=== PATIENT | male | born 1995 | race Asian ===

== ENCOUNTER 2017-07-27 17:03 | Emergency (ER) | payer OTHER ==
[~2017-07-27] VITALS: Ht 165.1 cm; Wt 72.7 kg
[2017-07-27] MEDS ORDERED: MORPHINE SULFATE 4 MG/ML SYRINGE IVP ONE (17:45)
[2017-07-27] MEDS ORDERED: ONDANSETRON HCL 4 MG/2 ML VIAL IVP ONE (17:45)
[2017-07-27] MEDS ORDERED: SODIUM CHLORIDE 0.9% 1,000 ML IV ONE (18:15)
[2017-07-27] MEDS ORDERED: FentaNYL CITRATE-PF 100 MCG/2 ML VIAL IVP ONE ×2 (18:15→20:15)
[2017-07-27] MEDS ORDERED: MIDAZOLAM HCL 5 MG/ML VIAL IVP ONE ×2 (18:15→20:15)
[2017-07-27] MEDS ORDERED: MIDAZOLAM HCL 2 MG/2 ML VIAL ONE (19:27)
[2017-07-27 21:30] VITALS: BP 127/83
== END 2017-07-27 21:53 | disposition home or self-care (01) ==
LOC: EMS 17:05
DX: S43.004A Unspecified dislocation of right shoulder joint, initial encounter (principal); F12.90 Cannabis use, unspecified, uncomplicated; W50.0XXA Accidental hit or strike by another person, initial encounter; Y93.67 Activity, basketball; Y92.89 Other specified places as the place of occurrence of the external cause; Y99.8 Other external cause status
CPT/HCPCS: 23650; 73030; 93005; 96361; 96374; 96375; 96376; 99152; 99153; 99285; J2250; J2270; J2405; J3010; J7030

== ENCOUNTER 2018-02-01 21:44 | Emergency (ER) | payer OTHER ==
[~2018-02-01] VITALS: Ht 162.6 cm; Wt 75.9 kg
[2018-02-01] MEDS ORDERED: KETAMINE HCL 50 MG/ML 10 ML VIAL IVP ONE (22:45)
[2018-02-02] MEDS ORDERED: ONDANSETRON HCL 4 MG/2 ML VIAL IVP ONE (01:00)
[2018-02-02 01:30] VITALS: BP 132/77
== END 2018-02-02 01:44 | disposition home or self-care (01) ==
LOC: EMS 21:46
DX: M24.411 Recurrent dislocation, right shoulder (principal); F12.10 Cannabis abuse, uncomplicated; X58.XXXA Exposure to other specified factors, initial encounter; Y93.89 Activity, other specified; Y92.89 Other specified places as the place of occurrence of the external cause; Y99.8 Other external cause status
CPT/HCPCS: 23650; 73030; 96374; 96375; 99285; J2405; J3490

== ENCOUNTER 2018-03-02 02:11 | Emergency (ER) | payer OTHER ==
[~2018-03-02] VITALS: Ht 162.6 cm; Wt 62.0 kg
[2018-03-02] MEDS ORDERED: MORPHINE SULFATE 4 MG/ML SYRINGE IVP ONE (04:15)
[2018-03-02] MEDS ORDERED: ONDANSETRON HCL 4 MG/2 ML VIAL IVP ONE (04:15)
[2018-03-02] MEDS ORDERED: MIDAZOLAM HCL 5 MG/ML VIAL IVP ONE (04:45)
[2018-03-02] MEDS ORDERED: FentaNYL CITRATE-PF 100 MCG/2 ML VIAL IVP ONE ×2 (04:45→06:30)
[2018-03-02] MEDS ORDERED: MIDAZOLAM HCL 2 MG/2 ML VIAL IVP ONE (06:30)
[2018-03-02 07:24] VITALS: BP 135/97
== END 2018-03-02 07:54 | disposition home or self-care (01) ==
LOC: EMS 02:11
DX: S43.004A Unspecified dislocation of right shoulder joint, initial encounter (principal); F12.90 Cannabis use, unspecified, uncomplicated; X50.0XXA Overexertion from strenuous movement or load, initial encounter; Y93.89 Activity, other specified; Y92.89 Other specified places as the place of occurrence of the external cause; Y99.8 Other external cause status
CPT/HCPCS: 23650; 73030; 96374; 96375; 99152; 99153; 99285; J2250; J2270; J2405; J3010; 29240

== ENCOUNTER 2018-04-25 11:12 | Emergency (ER) | payer OTHER ==
[~2018-04-25] VITALS: Ht 162.6 cm; Wt 74.1 kg
[2018-04-25] MEDS ORDERED: OXYGEN THERAPY IH SCH (11:30)
[2018-04-25] MEDS ORDERED: FentaNYL CITRATE-PF 100 MCG/2 ML VIAL IVP ONE (11:30)
[2018-04-25] MEDS ORDERED: MIDAZOLAM HCL 2 MG/2 ML VIAL IVP ONE ×2 (11:30)
[2018-04-25] MEDS ORDERED: ETOMIDATE 2 MG/ML 10 ML VIAL ONE (12:01)
[2018-04-25] MEDS ORDERED: ETOMIDATE 2 MG/ML 10 ML VIAL IVP ONE (12:30)
[2018-04-25] MEDS ORDERED: IBUPROFEN 600 MG TABLET PO ONE (14:00)
[2018-04-25 14:22] VITALS: BP 134/102
== END 2018-04-25 14:53 | disposition home or self-care (01) ==
LOC: EMS 11:13
DX: S00.83XA Contusion of other part of head, initial encounter (principal); M24.411 Recurrent dislocation, right shoulder; F12.90 Cannabis use, unspecified, uncomplicated; W19.XXXA Unspecified fall, initial encounter; Y93.67 Activity, basketball; Y92.89 Other specified places as the place of occurrence of the external cause; Y99.8 Other external cause status
CPT/HCPCS: 23650; 70100; 73030; 96374; 99152; 99285; G0238; J2250; J3010; J3490

== ENCOUNTER 2018-06-02 17:05 | Emergency (ER) | payer OTHER ==
[~2018-06-02] VITALS: Ht 162.6 cm; Wt 73.6 kg
[2018-06-02 17:44] VITALS: BP 152/103
[2018-06-02] MEDS ORDERED: HydrOXYzine PAMOATE 50 MG CAPSULE PO ONE (18:15)
== END 2018-06-02 18:56 | disposition home or self-care (01) ==
LOC: EMS 17:05
DX: F41.9 Anxiety disorder, unspecified (principal); F32.9 Major depressive disorder, single episode, unspecified; F12.90 Cannabis use, unspecified, uncomplicated

== ENCOUNTER 2018-06-22 13:25 | Emergency (ER) | payer OTHER ==
[~2018-06-22] VITALS: Ht 162.6 cm; Wt 74.5 kg
[2018-06-22] MEDS: MORPHINE SULFATE 4 MG/ML SYRINGE IVP ONE (14:11)
[2018-06-22] MEDS: ONDANSETRON HCL 4 MG/2 ML VIAL IVP ONE (14:11)
[2018-06-22] MEDS: ETOMIDATE 2 MG/ML 10 ML VIAL IVP ONE (15:30)
[2018-06-22] MEDS: OXYGEN THERAPY IH SCH (15:30)
[2018-06-22] MEDS ORDERED: MIDAZOLAM HCL 5 MG/ML VIAL ONE (15:47)
[2018-06-22 16:05] VITALS: BP 155/90
[2018-06-22 16:24] LABS: BASOPHILS % (AUTO) 0.5 % (0.0-2.0); EOSINOPHILS % (AUTO) 2.1 % (1.0-6.0); HEMATOCRIT 48.5 % (41-53); HEMOGLOBIN 16.9 g/dL (13.5-17.5); LYMPHOCYTES # (AUTO) 2.5 K/uL (1.0-4.8); LYMPHOCYTES % (AUTO) 41.4 % (22.0-44.0); MEAN CORPUSCULAR HEMOGLOBIN 30.4 pg (26.0-34.0); MEAN CORPUSCULAR HGB CONC 34.9 G/dL (31.0-37.0); MEAN CORPUSCULAR VOLUME 87 fL (80-100); MONOCYTES # (AUTO) 0.3 K/uL (0.1-1.0); MONOCYTES % (AUTO) 5.5 % (2.0-9.0); NEUTROPHILS % (AUTO) 50.5 % (40.0-70.0); PLATELET COUNT (AUTO) 364 K/uL (150-450); RED BLOOD CELL COUNT(AUTO) 5.58 MIL/uL (4.50-5.90); RED CELL DISTRIBUTION WIDTH 12.8 % (11.5-14.5)
[2018-06-22 16:39] LABS: ANION GAP 10 mmol/L (8-16); CALCIUM, TOTAL 8.8 mg/dL (8.8-10.5); CARBON DIOXIDE 25 mmol/L (22-29); CHLORIDE 106 mmol/L (98-107); CREATININE 1.08 mg/dL (0.60-1.30); GLOMERULAR FILTR. RATE CALC > 60 mL/min (>60); GLUCOSE,RANDOM 90 mg/dL (70-110); POTASSIUM 3.9 mmol/L (3.5-5.1); SODIUM SERUM 141 mmol/L (136-145); UREA NITROGEN, BLOOD 12 mg/dL (7-18)
[2018-06-22 16:45] LABS: ALANINE AMINOTRANSFERASE 32 U/L (12-78); ALBUMIN 4.5 g/dL (3.4-5.0); ALKALINE PHOSPHATASE 99 U/L (46-116); ASPARTATE AMINOTRANSFERASE 15 U/L (15-37); BILIRUBIN,TOTAL 0.4 mg/dL (0.1-1.0)
== END 2018-06-22 18:32 | disposition home or self-care (01) ==
LOC: EDUNIT# 13:25 → EMS 13:27
DX: S43.014A Anterior dislocation of right humerus, initial encounter (principal); F41.9 Anxiety disorder, unspecified; X58.XXXA Exposure to other specified factors, initial encounter; Y93.89 Activity, other specified; Y92.89 Other specified places as the place of occurrence of the external cause; Y99.8 Other external cause status
CPT/HCPCS: 23650; 36415; 73030; 80053; 85025; 96374; 96375; 99152; 99285; J2250; J2270; J2405; J3490

== ENCOUNTER 2020-10-12 18:06 | Emergency (ER) | payer MEDICAID, OTHER ==
[~2020-10-12] VITALS: Ht 172.7 cm; Wt 72.7 kg
[2020-10-12 18:16] VITALS: BP 129/81
== END 2020-10-12 19:19 | disposition home or self-care (01) ==
LOC: EMS 18:11
DX: S46.911A Strain of unspecified muscle, fascia and tendon at shoulder and upper arm level, right arm, initial encounter (principal); F12.90 Cannabis use, unspecified, uncomplicated; F17.210 Nicotine dependence, cigarettes, uncomplicated; W21.05XA Struck by basketball, initial encounter; Y93.89 Activity, other specified; Y92.89 Other specified places as the place of occurrence of the external cause; Y99.8 Other external cause status
CPT/HCPCS: 99283

== ENCOUNTER 2022-07-14 10:03 | Inpatient (IN) | payer MEDICAID, OTHER, SELFPAY ==
[~2022-07-14] VITALS: Ht 170.2 cm; Wt 78.2 kg
[2022-07-14 12:12] LABS: BASOPHILS % (AUTO) 0.2 % (0.0-2.0); EOSINOPHILS % (AUTO) 0.1 % (1.0-6.0); HEMATOCRIT 50.3 % (41-53); HEMOGLOBIN 17.1 g/dL (13.5-17.5); LYMPHOCYTES # (AUTO) 0.8 K/uL (1.0-4.8); LYMPHOCYTES % (AUTO) 15.9 % (22.0-44.0); MEAN CORPUSCULAR HEMOGLOBIN 29.5 pg (26.0-34.0); MEAN CORPUSCULAR HGB CONC 33.9 G/dL (31.0-37.0); MEAN CORPUSCULAR VOLUME 87 fL (80-100); MONOCYTES # (AUTO) 0.5 K/uL (0.1-1.0); MONOCYTES % (AUTO) 9.1 % (2.0-9.0); NEUTROPHILS % (AUTO) 74.7 % (40.0-70.0); PLATELET COUNT (AUTO) 309 K/uL (150-450); RED BLOOD CELL COUNT(AUTO) 5.78 MIL/uL (4.50-5.90); RED CELL DISTRIBUTION WIDTH 12.7 % (11.5-14.5)
[2022-07-14 12:15] LABS: ANION GAP 13 mmol/L (8-16); CALCIUM, TOTAL 9.4 mg/dL (8.8-10.5); CARBON DIOXIDE 22 mmol/L (22-29); CHLORIDE 103 mmol/L (98-107); CREATININE 0.76 mg/dL (0.60-1.30); GLOMERULAR FILTR. RATE CALC > 60 mL/min (>60); GLUCOSE,RANDOM 103 mg/dL (70-110); SODIUM SERUM 138 mmol/L (136-145); UREA NITROGEN, BLOOD 14 mg/dL (7-18)
[2022-07-14 12:21] LABS: ALANINE AMINOTRANSFERASE 80 U/L (12-78); ALBUMIN 4.7 g/dL (3.4-5.0); ALKALINE PHOSPHATASE 117 U/L (46-116); ASPARTATE AMINOTRANSFERASE 32 U/L (15-37); BILIRUBIN,TOTAL 0.5 mg/dL (0.1-1.0)
[2022-07-14] MEDS ORDERED: LORazepam 2 MG TABLET PO PRN (15:15)
[2022-07-14] MEDS ORDERED: QUEtiapine FUMARATE 100 MG TABLET PO PRN (15:15)
[2022-07-14] MEDS ORDERED: ZOLPIDEM TARTRATE 10 MG TABLET PO PRN (15:15)
[2022-07-14 17:57] LABS: COVID AG,FIA SOURCE NASAL SWAB
[2022-07-14] MEDS ORDERED: IBUPROFEN 400 MG TABLET PO PRN (19:45)
[2022-07-14] MEDS ORDERED: ACETAMINOPHEN 325 MG TABLET PO PRN (19:45)
[2022-07-14] MEDS ORDERED: CloNIDine HCL 0.1 MG TABLET PO PRN (19:45)
[2022-07-14] MEDS ORDERED: ONDANSETRON HCL 4 MG TABLET PO PRN (19:45)
[2022-07-14] MEDS ORDERED: PETROLATUM,WHITE 28 GM JELLY TP PRN (19:45)
[2022-07-14] MEDS ORDERED: NICOTINE 14 MG/24 HOUR PATCH TD PRN (19:45)
[2022-07-14] MEDS ORDERED: DOCUSATE SODIUM 100 MG CAPSULE PO PRN (19:45)
[2022-07-14] MEDS ORDERED: GuaiFENesin/D-METHORPHAN [SUGAR-FREE] 200-20MG/10 ML SYRUP UDCUP PO PRN (19:45)
[2022-07-14] MEDS ORDERED: ALBUTEROL SULFATE HFA 90 MCG/PUFF 8 GM INHALER IH PRN (19:45)
[2022-07-14] MEDS ORDERED: MAG HYDROX/AL HYDROX/SIMETH ES 30 ML SUSPENSION UDCUP PO PRN (19:45)
[2022-07-14] MEDS ORDERED: MAGNESIUM HYDROXIDE SUSPENSION 30 ML UDCUP PO PRN (19:45)
[2022-07-14] MEDS ORDERED: LOPERAMIDE HCL 2 MG CAPSULE PO PRN (19:45)
[2022-07-14 21:06] LABS: APPEARANCE,URINE CLEAR (CLEAR); BILIRUBIN,URINE NEGATIVE (NEGATIVE); GLUCOSE, URINE (UA) NEGATIVE (NEGATIVE); LEUKOCYTE ESTERASE ,URINE NEGATIVE (NEGATIVE); NITRATE,URINE NEGATIVE (NEGATIVE); OCCULT BLOOD,URINE NEGATIVE (NEGATIVE); PH,URINE 5.5 (5.0-8.0); PROTEIN,URINE 30-70 mg/dL (NEGATIVE); SPECIFIC GRAVITIY, URINE 1.028 (1.003-1.030); UROBILINOGEN,URINE <=1.0 mg/dL (<=1.0)
[2022-07-14 21:12] LABS: AMPHET/METH SCREEN,URINE NEGATIVE (NEGATIVE); BARBITURATE SCREEN, URINE NEGATIVE (NEGATIVE); BENZODIAZEPINES SCREEN,URINE NEGATIVE (NEGATIVE); CANNABINOID SCREEN,URINE POSITIVE (NEGATIVE); COCAINE SCREEN,URINE NEGATIVE (NEGATIVE); METHADONE SCREEN, URINE NEGATIVE (NEGATIVE); OPIATE SCREEN,URINE NEGATIVE (NEGATIVE)
[2022-07-14 21:19] LABS: PHENCYCLIDINE SCREEN,URINE NEGATIVE (NEGATIVE)
[2022-07-14 22:55] VITALS: BP 143/88
[2022-07-14] MEDS ORDERED: INFLUENZA VIRUS VACCINE QVS 2022-23 (6MO+)/PF 60 MCG/0.5 ML SYRINGE IM. ONE (23:30)
[2022-07-15 08:34] VITALS: BP 140/90
[2022-07-15] MEDS: RisperiDONE 1 MG TABLET PO SCH ×2 (12:26→20:11)
[2022-07-15 20:20] VITALS: BP 138/89
[2022-07-16 08:03] VITALS: BP 136/71
[2022-07-16] MEDS: RisperiDONE 1 MG TABLET PO SCH ×2 (08:56→20:51)
[2022-07-16 20:10] VITALS: BP 139/97
[2022-07-17 08:05] VITALS: BP 131/97
[2022-07-17] MEDS: RisperiDONE 1 MG TABLET PO SCH ×2 (08:28→20:25)
[2022-07-17] MEDS ORDERED: RISP1TAB48 PO (08:37)
[2022-07-17 16:36] VITALS: BP 146/85
[2022-07-17 21:20] VITALS: BP 140/82
[2022-07-18 08:15] VITALS: BP 121/88
[2022-07-18] MEDS: RisperiDONE 1 MG TABLET PO SCH ×2 (08:36→20:28)
[2022-07-18 20:37] VITALS: BP 132/94
[2022-07-19 08:30] VITALS: BP 120/78
[2022-07-19] MEDS: RisperiDONE 1 MG TABLET PO SCH ×2 (08:40→20:30)
[2022-07-19 14:46] LABS: GLUCOMETER DEV NAME(LOC) POC.BV
[2022-07-19 20:10] VITALS: BP 141/87
[2022-07-20 08:58] VITALS: BP 133/88
[2022-07-20] MEDS: RisperiDONE 1 MG TABLET PO SCH (09:19)
[2022-07-20] MEDS ORDERED: RISP1TAB98 PO (09:30)
[2022-07-20 16:51] LABS: GLUCOMETER DEV NAME(LOC) POC.BV
== END 2022-07-20 15:00 | disposition home or self-care (01) | DRG 751 ==
LOC: EMS 10:03 → B2S 18:44
PROVIDERS: ADMIT Psychiatry & Neurology Psychiatry; ATTEND Psychiatry & Neurology Psychiatry
DX: F29 Unspecified psychosis not due to a substance or known physiological condition (principal); G92.9 Unspecified toxic encephalopathy; R45.850 Homicidal ideations; R00.0 Tachycardia, unspecified; Z79.899 Other long term (current) drug therapy; Z87.891 Personal history of nicotine dependence
CPT/HCPCS: 80053; 81003; 85025; 90686; 99285; G0480